=== PATIENT | female | born 1995 | race Asian ===

== ENCOUNTER 2019-02-20 18:40 | Emergency (ER) | payer SELFPAY ==
[2019-02-20 18:44] VITALS: BP 124/89; PULSE 99; TEMP 98.5; BMI 25.7
== END 2019-02-20 20:02 | disposition left against medical advice (07) ==
LOC: JER 18:40
DX: Z53.21 Procedure and treatment not carried out due to patient leaving prior to being seen by health care provider (principal)
CPT/HCPCS: 99281-25